=== PATIENT | male | born 1995 | race Caucasian/White ===

== ENCOUNTER 2018-10-05 02:29 | Emergency (ER) | payer SELFPAY ==
--- NOTE | 2018-10-05 11:07 | RAD ---
LEFT HAND 3 VIEWS: DATE: 10/05/2018. FINDINGS: No fracture was appreciated. All bones appeared intact. There may be some soft tissue swelling dors ally. IMPRESSION: No acute bony finding. POS: HOME
== END 2018-10-05 03:15 | disposition home or self-care (01) ==
LOC: BURERS 02:29
DX: S60.212A Contusion of left wrist, initial encounter (principal); J45.909 Unspecified asthma, uncomplicated; Z79.899 Other long term (current) drug therapy; W19.XXXA Unspecified fall, initial encounter
CPT/HCPCS: 29125

== ENCOUNTER 2018-12-29 12:19 | Emergency (ER) | payer SELFPAY ==
[2018-12-29] MEDS ORDERED: Ondansetron ODT 4 MG TAB ONE (12:29)
[2018-12-29] MEDS ORDERED: Albuterol Sulfate 1.25 MG/3 ML NEB ONE (13:01)
[2018-12-29] MEDS ORDERED: Dexamethasone 4 MG TAB ONE (13:17)
== END 2018-12-29 13:30 | disposition home or self-care (01) ==
LOC: BURERS 12:19
DX: J45.901 Unspecified asthma with (acute) exacerbation (principal); R11.2 Nausea with vomiting, unspecified; R19.7 Diarrhea, unspecified
CPT/HCPCS: 94640; J7620; J8540; Q0162